=== PATIENT | female | born 1980 | race Caucasian/White ===

== ENCOUNTER 2021-01-08 19:43 | Inpatient (IN) | payer OTHER ==
[2021-01-08 20:43] VITALS: BMI 22.4
[2021-01-08] MEDS ORDERED: BISMUTH SUBSALICYLATE 524 MG/30 ML PO PRN (22:24)
[2021-01-08] MEDS ORDERED: hydrOXYzine PAMOATE 25 MG CAPSULE (FP) PO PRN (22:24)
[2021-01-08] MEDS ORDERED: ONDANSETRON *ODT* 4 MG TABLET SL PRN (22:24)
[2021-01-08] MEDS ORDERED: IBUPROFEN 400 MG TABLET (FP) PO PRN (22:24)
[2021-01-08] MEDS ORDERED: MAG HYDROX/AL HYDROX/SIMETH 30 ML UNIT-DOSE CUP PO PRN (22:24)
[2021-01-08] MEDS ORDERED: MAGNESIUM CITRATE 300 ML BOTTLE PO PRN (22:24)
[2021-01-08] MEDS ORDERED: METHOCARBAMOL 500 MG TABLET PO PRN (22:24)
[2021-01-08] MEDS ORDERED: ACETAMINOPHEN 325 MG TABLET (FP) PO PRN ×2 (22:24)
[2021-01-08] MEDS ORDERED: NICOTINE POLACRILEX 2 MG GUM BUC PRN (22:24)
[2021-01-08] MEDS ORDERED: MENTHOL/PHENOL 1 EACH UD MM PRN (22:24)
[2021-01-08] MEDS ORDERED: MAGNESIUM HYDROX 2400MG/30ML ORAL SUSPENSION 30 ML CUP PO PRN (22:24)
[2021-01-08] MEDS ORDERED: diazePAM 5 MG TABLET PO PRN (22:28)
[2021-01-09] MEDS: diazePAM 5 MG TABLET PO SCH ×2 (00:24→07:15)
[2021-01-09 06:33] VITALS: BP 99/60; PULSE 60; TEMP 96.9
[2021-01-09] MEDS ORDERED: IBUPROFEN 400 MG TABLET (FP) PO PRN (09:23)
[2021-01-09] MEDS ORDERED: diazePAM 5 MG TABLET PO PRN (09:31)
[2021-01-09] MEDS ORDERED: PATIENT'S OWN MEDICATION (NON-FORMULARY) (Nitrofurantoin Macrocrystal [Nitrofurantoin] 100 PO SCH (10:00)
[2021-01-09] MEDS ORDERED: DOCUSATE SODIUM 100 MG CAPSULE (FP) PO SCH (10:00)
[2021-01-09] MEDS ORDERED: PRENATAL VITAMINS W/ FOLIC ACID TABLET (FP) PO SCH (10:00)
[2021-01-09] MEDS ORDERED: NICOTINE 21 MG/24 HOURS TOPICAL PATCH TD SCH (10:00)
[2021-01-09] MEDS ORDERED: NICOTINE 14 MG/24 HOURS TOPICAL PATCH TD SCH (10:00)
[2021-01-09] MEDS ORDERED: NICOTINE 10 MG CARTRIDGE (INHALER) IH SCH (10:00)
[2021-01-09] MEDS ORDERED: BUSPIRONE HCL 7.5 MG PO SCH (10:00)
[2021-01-09] MEDS ORDERED: diazePAM 5 MG TABLET PO SCH (11:00)
[2021-01-09] MEDS ORDERED: AMOXICILLIN 500 MG CAPSULE (FP) PO SCH (14:00)
[2021-01-09] MEDS ORDERED: MELATONIN 5 MG TABLETS PO SCH (22:00)
[2021-01-09] MEDS ORDERED: THIAMINE HCL 100 MG TABLET (FP) PO SCH (22:00)
[2021-01-10] MEDS ORDERED: diazePAM 5 MG TABLET PO SCH (06:00)
[2021-01-11] MEDS ORDERED: diazePAM 5 MG TABLET PO SCH ×2 (06:00)
[2021-01-12] MEDS ORDERED: diazePAM 5 MG TABLET PO SCH (06:00)
[2021-01-12] MEDS ORDERED: diazePAM 5 MG TABLET PO ONE (06:00)
== END 2021-01-09 07:25 | disposition left against medical advice (07) | DRG 770 ==
LOC: YASAS 19:43 → Y3N 22:56
PROVIDERS: ADMIT Allergy & Immunology; ATTEND Allergy & Immunology
PROC: HZ2ZZZZ Detoxification Services for Substance Abuse Treatment (ICD-10-PCS; principal; 2021-01-08)
DX: F13.230 Sedative, hypnotic or anxiolytic dependence with withdrawal, uncomplicated (principal); F15.10 Other stimulant abuse, uncomplicated; F17.210 Nicotine dependence, cigarettes, uncomplicated; F41.9 Anxiety disorder, unspecified; F32.9 Major depressive disorder, single episode, unspecified; F43.10 Post-traumatic stress disorder, unspecified; F90.9 Attention-deficit hyperactivity disorder, unspecified type
CPT/HCPCS: 81025; 93005; 93010; C9803; U0003; U0005

== ENCOUNTER 2021-01-09 09:15 | Inpatient (IN) | payer OTHER ==
[2021-01-09 09:36] VITALS: BMI 22.2
[2021-01-09] MEDS ORDERED: MAG HYDROX/AL HYDROX/SIMETH 30 ML UNIT-DOSE CUP PO PRN (10:03)
[2021-01-09] MEDS ORDERED: ACETAMINOPHEN 325 MG TABLET (FP) PO PRN (10:03)
[2021-01-09] MEDS ORDERED: METHOCARBAMOL 500 MG TABLET PO PRN (10:03)
[2021-01-09] MEDS ORDERED: diazePAM 5 MG TABLET PO PRN (10:03)
[2021-01-09] MEDS ORDERED: MENTHOL/PHENOL 1 EACH UD MM PRN (10:03)
[2021-01-09] MEDS ORDERED: MAGNESIUM CITRATE 300 ML BOTTLE PO PRN (10:03)
[2021-01-09] MEDS ORDERED: BISMUTH SUBSALICYLATE 524 MG/30 ML PO PRN (10:03)
[2021-01-09] MEDS ORDERED: NICOTINE 10 MG CARTRIDGE (INHALER) IH PRN (10:03)
[2021-01-09] MEDS ORDERED: IBUPROFEN 400 MG TABLET (FP) PO PRN ×2 (10:03→10:05)
[2021-01-09] MEDS ORDERED: MAGNESIUM HYDROX 2400MG/30ML ORAL SUSPENSION 30 ML CUP PO PRN (10:03)
[2021-01-09] MEDS ORDERED: ONDANSETRON *ODT* 4 MG TABLET SL PRN (10:03)
[2021-01-09] MEDS: diazePAM 5 MG TABLET PO SCH ×3 (12:55→22:38)
[2021-01-09] MEDS: NITROFURANTOIN MACROCRYSTAL 50 MG CAPSULE (FP) PO SCH ×3 (12:56→23:49)
[2021-01-09] MEDS: PRENATAL VITAMINS W/ FOLIC ACID TABLET (FP) PO SCH (12:56)
[2021-01-09] MEDS: hydrOXYzine PAMOATE 25 MG CAPSULE (FP) PO SCH ×3 (14:38→22:38)
[2021-01-09] MEDS: AMOXICILLIN 500 MG CAPSULE (FP) PO SCH ×2 (14:38→22:37)
[2021-01-09] MEDS: THIAMINE HCL 100 MG TABLET (FP) PO SCH (22:38)
[2021-01-09] MEDS: MELATONIN 5 MG TABLETS PO SCH (22:38)
[2021-01-10] MEDS: NITROFURANTOIN MACROCRYSTAL 50 MG CAPSULE (FP) PO SCH ×3 (07:55→18:07)
[2021-01-10] MEDS: AMOXICILLIN 500 MG CAPSULE (FP) PO SCH ×3 (07:55→23:07)
[2021-01-10] MEDS: hydrOXYzine PAMOATE 25 MG CAPSULE (FP) PO SCH ×5 (07:56→23:09)
[2021-01-10] MEDS: diazePAM 5 MG TABLET PO SCH ×4 (07:59→23:08)
[2021-01-10] MEDS: DOCUSATE SODIUM 100 MG CAPSULE (FP) PO SCH (12:22)
[2021-01-10] MEDS: PRENATAL VITAMINS W/ FOLIC ACID TABLET (FP) PO SCH (12:22)
[2021-01-10] MEDS: MELATONIN 5 MG TABLETS PO SCH (23:08)
[2021-01-10] MEDS: THIAMINE HCL 100 MG TABLET (FP) PO SCH (23:09)
[2021-01-11] MEDS: ACETAMINOPHEN 325 MG TABLET (FP) PO PRN (01:44)
[2021-01-11] MEDS: NITROFURANTOIN MACROCRYSTAL 50 MG CAPSULE (FP) PO SCH ×5 (01:48→23:16)
[2021-01-11] MEDS: diazePAM 5 MG TABLET PO SCH ×3 (06:05→22:28)
[2021-01-11] MEDS: hydrOXYzine PAMOATE 25 MG CAPSULE (FP) PO SCH ×5 (06:05→22:28)
[2021-01-11] MEDS: AMOXICILLIN 500 MG CAPSULE (FP) PO SCH ×3 (06:32→22:27)
[2021-01-11] MEDS: DOCUSATE SODIUM 100 MG CAPSULE (FP) PO SCH (10:25)
[2021-01-11] MEDS: PRENATAL VITAMINS W/ FOLIC ACID TABLET (FP) PO SCH (10:26)
[2021-01-11] MEDS: MELATONIN 5 MG TABLETS PO SCH (22:26)
[2021-01-11] MEDS: THIAMINE HCL 100 MG TABLET (FP) PO SCH (22:26)
[2021-01-11] MEDS: QUEtiapine FUMARATE 100 MG TABLET (FP) PO PRN (22:30)
[2021-01-12] MEDS: diazePAM 5 MG TABLET PO SCH ×2 (05:55→18:08)
[2021-01-12] MEDS: AMOXICILLIN 500 MG CAPSULE (FP) PO SCH ×3 (05:55→22:16)
[2021-01-12] MEDS: hydrOXYzine PAMOATE 25 MG CAPSULE (FP) PO SCH ×2 (05:57→10:24)
[2021-01-12] MEDS: NITROFURANTOIN MACROCRYSTAL 50 MG CAPSULE (FP) PO SCH ×3 (05:57→18:06)
[2021-01-12] MEDS: ACETAMINOPHEN 325 MG TABLET (FP) PO PRN (05:59)
[2021-01-12] MEDS: DOCUSATE SODIUM 100 MG CAPSULE (FP) PO SCH (10:23)
[2021-01-12] MEDS: PRENATAL VITAMINS W/ FOLIC ACID TABLET (FP) PO SCH (10:24)
[2021-01-12] MEDS: hydrOXYzine PAMOATE 25 MG CAPSULE (FP) PO PRN (12:30)
[2021-01-12] MEDS: THIAMINE HCL 100 MG TABLET (FP) PO SCH (22:16)
[2021-01-12] MEDS: QUEtiapine FUMARATE 100 MG TABLET (FP) PO PRN (22:16)
[2021-01-12] MEDS: MELATONIN 5 MG TABLETS PO SCH (22:17)
[2021-01-13] MEDS: NITROFURANTOIN MACROCRYSTAL 50 MG CAPSULE (FP) PO SCH ×2 (01:07→06:16)
[2021-01-13] MEDS ORDERED: diazePAM 5 MG TABLET PO ONE (06:00)
[2021-01-13] MEDS: AMOXICILLIN 500 MG CAPSULE (FP) PO SCH (06:16)
[2021-01-13] MEDS: hydrOXYzine PAMOATE 25 MG CAPSULE (FP) PO PRN (06:16)
[2021-01-13 09:41] VITALS: BP 116/81; PULSE 91; TEMP 97.1
[2021-01-13] MEDS: DOCUSATE SODIUM 100 MG CAPSULE (FP) PO SCH (09:43)
[2021-01-13] MEDS: PRENATAL VITAMINS W/ FOLIC ACID TABLET (FP) PO SCH (09:43)
== END 2021-01-13 10:15 | disposition home or self-care (01) | DRG 776 ==
LOC: YASAS 09:15 → Y3N 10:52
PROVIDERS: ADMIT Allergy & Immunology; ATTEND Allergy & Immunology
PROC: HZ2ZZZZ Detoxification Services for Substance Abuse Treatment (ICD-10-PCS; principal; 2021-01-09)
DX: F13.230 Sedative, hypnotic or anxiolytic dependence with withdrawal, uncomplicated (principal); F15.10 Other stimulant abuse, uncomplicated; F17.210 Nicotine dependence, cigarettes, uncomplicated; F43.10 Post-traumatic stress disorder, unspecified; F41.9 Anxiety disorder, unspecified; F32.9 Major depressive disorder, single episode, unspecified; J45.909 Unspecified asthma, uncomplicated; M54.5 Low back pain; G89.29 Other chronic pain; S09.90XA Unspecified injury of head, initial encounter; W18.30XA Fall on same level, unspecified, initial encounter; Y92.232 Corridor of hospital as the place of occurrence of the external cause; Z56.0 Unemployment, unspecified
CPT/HCPCS: C9803; U0003; U0005

== ENCOUNTER 2021-01-10 10:49 | Emergency (ER) | payer OTHER ==
[2021-01-10 11:46] VITALS: BMI 21.7
[2021-01-10] MEDS ORDERED: SODIUM CHLORIDE 0.9% 500 ML INFUS.BAG IV ONE ×2 (12:46→18:34)
[2021-01-10] MEDS ORDERED: ACETAMINOPHEN 1000 MG/100 ML VIAL (NON FORMULARY) IVPB ONE (12:46)
[2021-01-10] MEDS ORDERED: hydrOXYzine PAMOATE 25 MG CAPSULE (FP) PO ONE ×2 (13:12→13:15)
[2021-01-10] MEDS ORDERED: busPIRone HCL 5 MG TABLET PO ONE (13:12)
[2021-01-10] MEDS ORDERED: diazePAM 5 MG TABLET PO ONE (13:12)
[2021-01-10] MEDS ORDERED: ACETAMINOPHEN INJECTION 100 ML IVPB ONE (13:16)
[2021-01-10] MEDS ORDERED: busPIRone HCL 5 MG TABLET ONE (13:16)
[2021-01-10] MEDS ORDERED: diazePAM 5 MG TABLET ONE (13:16)
[2021-01-10 13:45] LABS: HEMATOCRIT 37.2 % (32.4-45.2); MCH 31.2 pg (25.7-33.7); MCHC 34.9 g/dl (32.0-36.0); MEAN CELL VOLUME 89.4 fl (80-96); MEAN PLT VOLUME 7.6 fl (7.5-11.1); PLATELET COUNT 440 10^3/uL (134-434); RBC 4.16 M/mm3 (3.60-5.2); RDW 13.3 % (11.6-15.6); WHITE BLOOD COUNT 17.8 K/mm3 (4.0-10.0)
[2021-01-10 13:46] LABS: CHLORIDE 106 mmol/L (98-107); SODIUM 138 mmol/L (136-145)
[2021-01-10 13:48] LABS: ALBUMIN 3.9 g/dl (3.4-5.0); ANION GAP 4 MMOL/L (8-16); CALCIUM 8.9 mg/dL (8.5-10.1); CO2 28 mmol/L (21-32)
[2021-01-10 13:49] LABS: BLOOD UREA NITROGEN 11.3 mg/dL (7-18); GLUCOSE,RANDOM 94 mg/dL (74-106)
[2021-01-10 13:52] LABS: CREATININE 0.7 mg/dL (0.55-1.3); SGOT/AST 18 U/L (15-37); SGPT/ALT 16 U/L (13-61)
[2021-01-10 13:53] LABS: BILIRUBIN,TOTAL 0.5 mg/dL (0.2-1); TOT PROT 7.2 g/dl (6.4-8.2)
[2021-01-10 13:54] LABS: ALK PHOS 94 U/L (45-117)
[2021-01-10 14:24] LABS: ANISOCYTOSIS 0; MACROCYTOSIS 0; PLATELET ESTIMATE NORMAL
[2021-01-10 17:50] LABS: URINE APPEARANCE CLEAR; URINE BILIRUBIN NEGATIVE (NEGATIVE); URINE COLOR YELLOW; URINE GLUCOSE (UA) NEGATIVE (NEGATIVE); URINE KETONE NEGATIVE (NEGATIVE); URINE LEUK ESTERASE NEGATIVE (NEGATIVE); URINE NITRITE NEGATIVE (NEGATIVE); URINE PROTEIN NEGATIVE (NEGATIVE); URINE UROBILINOGEN 0.2 mg/dL (0.2-1.0)
[2021-01-10 21:59] LABS: BASO % 0.1 % (0-2.0); EOS % 2.6 % (0-4.5); HEMATOCRIT 32.5 % (32.4-45.2); HEMOGLOBIN 11.4 GM/dL (10.7-15.3); LYMPH % 8.2 % (8-40); MCH 31.2 pg (25.7-33.7); MCHC 35.2 g/dl (32.0-36.0); MEAN CELL VOLUME 88.5 fl (80-96); MEAN PLT VOLUME 6.7 fl (7.5-11.1); MONO % 4.5 % (3.8-10.2); NEUT % 84.6 % (42.8-82.8); PLATELET COUNT 353 10^3/uL (134-434); RBC 3.67 M/mm3 (3.60-5.2); RDW 13.4 % (11.6-15.6); WHITE BLOOD COUNT 13.4 K/mm3 (4.0-10.0)
[2021-01-10 22:54] VITALS: BP 100/68; PULSE 72; TEMP 98.6
== END 2021-01-11 01:14 | disposition home or self-care (01) ==
LOC: JER 10:49
PROC: 3E0333Z Introduction of Anti-inflammatory into Peripheral Vein, Percutaneous Approach (ICD-10-PCS; principal; 2021-01-10)
DX: F13.230 Sedative, hypnotic or anxiolytic dependence with withdrawal, uncomplicated (principal); S09.90XA Unspecified injury of head, initial encounter; W01.0XXA Fall on same level from slipping, tripping and stumbling without subsequent striking against object, initial encounter; Y93.01 Activity, walking, marching and hiking
CPT/HCPCS: 36415; 70450-TC; 71045-TC-FY; 80053; 81003; 82550; 84443; 84484; 84703; 85025; 87086; 87804; 87807; 93005; 93010; 99285-25; C9803; J0131; U0003; U0005